=== PATIENT | male | born 1960 | race Caucasian/White ===

== ENCOUNTER 2024-06-15 17:06 | Emergency (ER) | payer BC, SELFPAY ==
--- NOTE | ~2024-06-15 | XR_ITS ---
The HISTORY: L shoulder pain COMPARISON: None TECHNIQUE: 2 views of the left shoulder were performed FINDINGS: No acute fracture. The glenohumeral joint space is maintained. Significant widening of the acromioclavicular joint, consistent with acromioclavicular joint separati on. The visualized portion of the adjacent left lung is clear. The humeral head is well seated within the glenoid fossa. IMPRESSION: No acute fracture or anterior dislocation. Acromioclavicular joint separation. Reviewed, dictated and finalized at location A.
[2024-06-15 17:07] VITALS: BP 156/91; PULSE 68; RESP 16; TEMP 36.4; O2SAT 96
--- OUTSIDE RECORDS SUMMARY | 2024-06-15 17:08 | XMS_ITS | Data Portability ---
Author Organization [facility] Alfredo CALERO Address [address] [place] [address] Assessment No assessment recorded. Plan of Treatment Reminders Order Date Submit Date Provider Last Modified By Organization Details Last Modified Time Details Appointments None recorded. Lab None recorded. Referral orthopedic surgeon referral 2015 016 [email or web address] Not available 6 12:07:42 orthopedic surgeon referral 2015 016 [email or web address] Not available 6 13:51:38 Procedures None recorded. Surgeries None recorded. Imaging MRI, knee, w/o contrast 2015 016 [facility], [address] [facility], [place], [address], 6 17:54:46 Medication Orders Vicoprofen 7.5 mg-200 mg tablet 2015 016 [email or web address], [address] [place], [address], 6 09:32:44 Vicoprofen 7.5 mg-200 mg tablet 2015 016 [email or web address], [address] [place], [address], 6 12:26:35 Patient TargetsNo targets recorded. Patient Instructions Encounter Date Encounter Id Patient Instructions Last Modified By Organization Details Last Modified Time 08/27/2015 [id number] medial collatera l ligament injury: care instructions Not available 08/27/2015 11:17:55 09/06/2015 [id number] medial collatera l ligament injury: care instructions Not available 09/06/2015 16:19:42 Reason for Referral Orthopedic Surgeon Referral for Rupture of medial collateral ligament of knee left knee mcl tear Referring Physician: Jhonatan Morrissey [facility], Encounter Date: 08/27/2015 Orthopedic Surgeon Referral for Rupture of medial collateral ligament of knee lft knee meniscal tear Referring Physician: Jhonatan Morrissey [facility], Encounter Date: 09/06/2015 Results Created Date Observation Date Name Description Value Unit Range Abnormal Flag Note LastModifiedBy Organization Detail LastModifiedTime 09/01/19 16 08/31/2015 MRI, knee, w/o contr ast No observ ation record ed. [address], [address], 09/06/2015 15:52:07 09/01/19 16 MRI, knee, w/o contr ast No observ ation record ed. [address], [address], 09/06/2015 15:52:07 Result Notes None recorded. Problems Name Problem SNOMED Code Status Onset Date Resolution Date Notes Provider Name and Address Organization Details Recorded Time Rupture of medial collateral ligament of knee 304400451 Active Jhonatan Morrissey PA-C Attn: [address] [place], [address] [place] [address] SIF 6 15:59:31 Problem Notes None recorded. Procedures Surgical History None recorded. Imaging Results Imaging Date Name Status LastModified by Organiz ation Details LastModified Time 08/31/2015 MRI, knee, w/o contrast completed [address], [address], 09/06/2015 15:52:07 09/01/2015 MRI, knee, w/o contrast completed [address], [address], 09/06/2015 15:52:07 Procedure Notes None recorded. Medical Equipment None Reported. Allergies No known drug allergies Medications Name Sig Start Date Stop Date Status Note LastModified by Organization Details LastModified Time hydrocodone 7.5 mg-ibuprofen 200 mg tablet Take 1 tablet every 8 hours by oral route for 30 days. 2015 active Not Available Not Available Not Avai lable hydrocodone 5 mg-acetaminop hen 325 mg tablet 08/26 completed Not Available Not Available Not Available hydrocodone 10 mg-acetaminop hen 325 mg tablet active Not Available Not Available Not Available oxycodone-aly taminophen 5 mg-325 mg tablet active Not Available Not Available Not Available omeprazole 20 mg capsule,delay ed release active Not Available Not Available N ot Available diclofenac sodium 75 mg tablet,delaye d release active Not Available Not Available No t Available fluticasone propionate 50 mcg/actuation nasal spray,suspens ion active Not Available Not Available Not Available Vitals Date Recorded Body height Systolic blood pressure Diastolic blood pressure Provider Name and Address Organization Details Last Updated DateTime 08/27/2015 166.37 cm 134 mm[Hg] 82 mm[Hg] Mica Leggett MA [facility] 08/27/2015 10:11:57 Date Recorded Body height Systolic blood pressure Diastolic blood pressure Provider Name and Address Organization Details Last Updated DateTime 09/06/2015 166.37 cm 118 mm[Hg] 64 mm[Hg] Mica Leggett MA [facility] 09/06/2015 15:38:12 Social History Question Answer Notes LastModified by [employer] ion Details LastModified Time Tobacco Smoking Status Former Smoker Mica Leggett MA null, [facility] 08/27/2015 10:06:39 How Much Tobacco Do You Smoke? 1 PPD Information not available 08/27/2015 Sex: Unknown Functional Status None recorded. Mental Status None recorded. Family History Relationship Description Onset Age of this Age Resolved Age Notes LastModified by Organization Details LastModified Time Mother Blood coagulation disorder Not available 08/11 15:23:35 Mother Hypertensive disorder Not available 08/11 15:23:35 Mother Hypercholest erolemia Not available 08/11 15:23:35 Mother Migraine Not availa ble 09/06/2015 15:23:35 Father Diabetes mellitus Not available 08/11 15:23:35 Father Hypertensive disorder Not available 08/11 15:23:35 Father Hypercholest erolemia Not available 08/11 15:23:35 Brother Alcohol abuse Not available 08/11 15:23:35 Medical History Condition Response High Cholesterol Y Past Encounters Encounter ID Performer Location Encounter Start Date Encounter Closed Date Diagnosis/Indication Diagnosis SNOMED-CT Code Diagnosis ICD10 Code Diagnosis Note [id number] MOUSTAPHA Padron [address] [place] [address] 08/27/2015 09:57:03 08/27/2015 11:01:04 Rupture of medial collateral ligament of knee 443873163 M23.632 [id number] MOUSTAPHA Padron [facility] [address] [place] [address] 09/06/2015 15:11:10 09/06/2015 16:26:19 Rupture of medial collateral ligament of knee 774309841 M23.632 Health Concerns Section Related Observation LastModified by Organization Detai ls LastModified Time None Recorded Concern Status LastModified by Organization Details LastModified Time None Recorded Advance Directives Directive None Recorded Payers Encounter Date Sequence Insurance Name Policy Number Policy Rodarte Covered Member ID Rodarte Member ID Guarantor Name 08/27/2015 1 [facility] (MEDICAID HM) Bari Weathers [id number] Bari Weathers 09/06/2015 1 [employer] [facility] (MEDICAID HMO) Bari Weathers [id number] Bari Weathers Notes Date Note Type Note Provider Name and Address Organization Details Recorded Time 08/27/2015 text/html dr. van does not take [employer]. fell off a ladder backwards. missed step twisted knee xrays dont show anything. happened 1 week ago. Jhonatan Morrissey PA-C Attn: [facility] [place], [address], [facility] 08/27/2015 10:36:54 09/06/2015 text/html needs to got to [facility] for ortho. see mri Jhonatan Morrissey PA-C Attn: [address] [place], [address], [facility] 09/06/2015 16:01:24
--- OUTSIDE RECORDS SUMMARY | 2024-06-15 17:09 | XMS_ITS | Data Portability ---
Author Organization [place] - [facility] [employer], Main Office Address [address] [place] [address] Assessment Encounter Date Assessment Date Assessment LastModified by Organization Details LastModified Time 08/09/2023 08/09/2023 fatty mass posterior shoulder, enlarging symptomatic. Options discussed with patient. Will schedule for excision under sedation. Risks and benefits were discussed. Risks include bleeding, infection and numbness Not available 08/09/2023 13:04:18 09/04/2023 09/04/2023 status post excision benign fatty mass right posterior shoulder. Doing well overall. Follow up p.r.n. Not available 09/04/2023 13:05:02 09/12/2023 09/12/2023 63 year old male presents for follow up of his left knee arthritis. He had Euflexxa last December, and that worked well until recently. Still taking diclofenac. Currently rates 5/10 pain. Tenderness over the lateral joint line and with patellar grind. Range of motion 0-130 with crepitus. 1+ effusion. XR show knee osteoarthritis Will plan to repeat Euflexxa injections. Will submit for authorization. Follow up after approval for injections. [email or web address] Not available 09/14/2023 22:48:42 12/03/2023 12/03/2023 04/22/2022: PSA 1.70 CBC, Lipid ordered 04/23/23,10/29/22,03/24/2023: Chol 219, TG 181, LDL 131 Gluc 142 TSH 0.37L, FT4 1.3N 07/24/2023: WBC 10.9 PSA 2.3 [email or web address] Not available 12/03/2023 18:09:00 04/07/2024 04/07/2024 04/22/2022: PSA 1.70 CBC, Lipid ordered 04/23/23,10/29/22,03/24/2023: Chol 219, TG 181, LDL 131 Gluc 142 TSH 0.37L, FT4 1.3N 07/24/2023: WBC 10.9 PSA 2.3 04/02/2024: A1C 5.9 [email or web address] Not available 04/07/2024 18:27:29 Plan of Treatment Reminders Order Date Submit Date Provider Last Modified By Organization Details Last Modified Time Details Appointments Any 15 2024 04:30P M Marika newsome MD Not available Not available Not available Lab HbA1c (hemogl obin A1c), blood 2024 025 [employer] [facility], [address], [place], [address], 04/07/2024 18:29:43 microal bumin, urine 2024 025 [employer] [facility], [address], [place], [address], 04/07/2024 18:29:46 CMP, serum or plasma 2024 025 [employer] [facility], [address], [place], [address], 04/07/2024 18:29:45 CBC w/ auto diff 2024 025 [email or web address] [facility], [address], [place], [address], 04/07/2024 18:29:44 lipid panel, serum 2024 025 [employer] [facility], [address], [place], [address], 04/07/2024 18:29:43 T4, free, serum 2024 025 [facility], [address], [place], [address], 04/07/2024 18:29:45 TSH, serum or plasma 2024 025 [facility], [address], [place], [address], 04/07/2024 18:29:46 HbA1c (hemogl obin A1c), blood 2023 024 [email or web address] [facility], [address], [place], [address], 06/04/2024 08:13:16 microal bumin, urine 2023 024 [email or web address] [facility], [address], [place], [address], 06/04/2024 08:13:16 CMP, serum or plasma 2023 024 [email or web address] [facility], [address], [place], [address], 06/04/2024 08:13:16 CBC w/ auto diff 2023 024 [email or web address] [facility], [address], [place], [address], 06/04/2024 08:13:16 lipid panel, serum 2023 024 [facility], [address], [place], [address], 04/07/2024 16:52:27 T4, free, serum 2023 024 [facility], [address], [place], [address], 06/04/2024 08:13:16 TSH, serum or plasma 2023 024 [email or web address] [facility], [address], [place], [address], 06/04/2024 08:13:17 Referral orthope dic surgeon referra l - Please call patient to schedul e an appoint ment. Thank you. 2024 025 caitlin Ingram MD, [address] [facility], [place], [address], 05/16/2024 09:22:54 podiatr ist referra l - Please call patient to schedul e an appoint ment. Thank you. 2024 025 caitlin Gr DPM, [address] [facility], [facility] [address], [place], [address], 05/16/2024 09:23:21 pain managem ent referra l - Please call patient to schedul e an appoint ment. Thank you. 2024 025 [email or web address] [facility], [address], [address], [place], [address], 05/16/2024 09:23:09 orthope dic surgeon referra l 2023 024 [email or web address] 2 Geoffrey Ingram MD, [address] [facility], [place], [address], 06/09/2024 09:04:04 pain managem ent referra l 2023 024 [facility], [address], [address], [place], [address], 12/31/2023 17:07:53 Procedures None recorde d. Surgeries None recorde d. Imaging XR, lumbosa cral spine, 2 or 3 view 2023 024 [facility] Not available 12/27/2023 15:24:04 XR, knee 2023 024 [facility] [place], [address], [place], [address], 09/24/2023 16:43:21 Medication Orders diclofe nac sodium 75 mg tablet, delayed release 2023 024 [id number], [address], [place], [place], [phone], 12/03/2023 18:11:20 Patient TargetsNo targets recorded. Patient Instructions Encounter Date Encounter Id Patient Instructions Last Modified By Organization Details Last Modified Time 09/12/2023 [id number] viscosupplementa tion treatment* [email or web address] Not available 09/17/2023 14:39:52 04/07/2024 [id number] diabetic eye exam* [email or web address] Not avail able 04/07/2024 18:39:58 Reason for Referral Orthopedic Surgeon Referral for Pain of left knee joint Referring Physician: Marika [facility], Encounter Date: 12/03/2023 Pain Management Referral for Low back pain Referring Physician: Marika [facility], Encounter Date: 12/03/2023 Orthopedic Surgeon Referral for Pain of left knee joint Please call patient to schedule an appointment. Thank you. Referring Physician: Marika [facility], Encounter Date: 04/07/2024 Pain Management Referral for Low back pain Please call patient to schedule an appointment. Thank you. Referring Physician: Marika Fraser [facility], Encounter Date: 04/07/2024 [employer] Referral for Hype rglycemia Please call patient to schedule an appointment. Thank you. Referring Physician: Marika [facility], Encounter Date: 04/07/2024 Results Created Date Observation Date Name Description Value Unit Range Abnormal Flag Note LastModifiedBy Organization Detail LastModifiedTime 09/12/19 24 XR, knee No observ ation record ed. [email or web address] [facility] [place] [address], [place], [address], 09/12/2023 14:49:48 12/27/19 24 XR, lumbo sacra l spine , 2 or 3 view [facility] [address] [place] [address] [phone] Patien t Name: MONICA SEGAL Access ion #: [id number] Sex: M : 1959 2 Dictat ed By: Odalys Turner Attend ing Physic trevon: JOSÉ MIGUEL MÉNDEZ Orderparis gracia Physic trevon: JOSÉ MIGUEL MÉNDEZ Exam Date: 2023 14:20 PM Exam Name: XR L SPINE 2-3V Admitt ing Diagno sis(es ): INDICA TION:L BP TECHNI QUE: 4 views of the lumbar spine were obtain ed. COMPAR JAYME: None FINDIN GS: There are no acute fractu res or sublux ations . Multil evel advanc ed degene rative change s of the spine with multil evel degene rative disc space narrow ing and neural forami nal stenos is most promin ent at L3-L4, L4-L5 and L5-S1. Vascul ar athero sclero tic calcif icatio ns are presen t. Modera te volume coloni c stool. IMPRES DUDLEY: No acute fractu re or sublux ation. Electr onical ly Signed by: Odalys Turner at 2023 14:21: 51 PM Page 1 INTERFACE [facility] ([facility]) [address] [place], [address], 12/27/2023 15:24:04 12/27/19 24 12/27/2023 imagi ng/di agnos tic resul t No observ ation record ed. [facility] [address] [place], [address], 12/27/2023 15:41:10 Result Notes None recorded. Problems Name Problem SNOMED Code Status Onset Date Resolution Date Notes Provider Name and Address Organization Details Recorded Time Pain of right shoulder joint [id number] [id number] Completed 202111/03/2021 Not Available [facility] 3 22:26:48 Adult health examinati on Active 2020 Not Available [facility] 3 22:26:48 Pain in right hand 89595869883 9109 Active 2021 Not Available [facility] 3 22:26:48 Arthritis 6638620 Active 2020 Not Available [facility] 3 22:26:48 Pain of left knee joint 38491824314 4107 Active 2022 Not Available [facility] 3 22:26:48 Hyperlipi demia 41420955 Active 2020 Not Available [facility] 3 22:26:48 Essential hypertens ion 58563346 Active 2020 Not Available [facility] 3 22:26:48 Erectile dysfuncti on 126318433 Active 2021 Not Available [facility] 3 22:26:48 Osteoarth ritis 617453764 Active 2022 Marika marin MD [address], [address], [place], [address] , [email or web address] 3 09:29:03 Low back pain 069196721 Active 2022 Marika marin MD [address], [address], [place], [address] , [employer] 3 17:44:48 Hyperglyc emia 80672480 Active 2023 Marika marin MD [address], [address], [place], [address] , [employer] 4 17:31:36 Lipoma of shoulder 297654126 Active 2023 Marika marin MD [address], [address], [place], [address] , [employer] 4 10:16:13 Lipoma of skin 052054489 Active 2023 Aldo larson MD [address], [address], [place], [address] , [facility] [employer] 4 11:08:03 Osteoarth ritis of left knee joint 92564121106 9109 Active 2023 TREE Sidhu, [employer] 4 14:34:39 Problem Notes None recorded. Procedures Surgical History Date Name Laterality Status Provider Name and Address Organization Details Recorded Time 4 excision completed Joanne Matson MA [place] [employer] [facility] [employer] 09/05/2023 10:18:14 3 Euflexxa Injection completed Calista Dan NP [address], [address], [place], [address], [email or web address] 12/18/2022 09:53:57 3 Ortho - Cortisone Injection completed Geoffrey Ingram MD [address], [place], [address], [employer] [facility] [employer] 06/19/2022 10:28:41 1 Hernia Surgery completed Not Available [facility] 05/10 22:26:19 Orthopedic Surgery completed Not Available [facility] 05/10/2022 22:26:19 Imaging Results Imaging Date Name Status LastModified by Organiz ation Details LastModified Time 09/12/2023 XR, knee completed [facility] [place] [address], [place], [address], 09/12/2023 14:49:48 12/27/2023 XR, lumbosacral spine, 2 or 3 view active INTERFACE [facility] [address] [place], [address], 12/27/2023 15:24:04 12/27/2023 imaging/diagnos tic result active [facility] [address] [place], [address], 12/27/2023 15:41:10 Procedure Notes None recorded. Medical Equipment None Reported. Allergies No known drug allergies Medications Name Sig Start Date Stop Date Status Note LastModified by Organization Details LastModified Time atorvastati n 20 mg tablet TAKE 1 TABLET BY MOUTH EVERY DAY 2024 active Not Available Not Available Not Avai lable sildenafil 50 mg tablet Take 1 tablet twice a week by oral route as needed for 90 days. 10/04 completed Not Available Not Available Not Available ciprofloxac in 500 mg tablet TAKE 1 TABLET BY MOUTH EVERY 12 HOURS 06/16 completed Not Available Not Available Not Available peg-electro lyte solution 420 gram oral solution 07/05 completed Not Available Not Available Not Available tramadol 50 mg tablet TAKE 1 TABLET BY MOUTH EVERY 6 HOURS NEEDED FOR PAIN active Not Available Not Available No t Available oxycodone-a cetaminophe n 5 mg-325 mg tablet TAKE 1 TABLET BY MOUTH EVERY 4-6 HOURS NEEDED 12/02 completed Not Available Not Available Not Available Kenalog 10 mg/mL suspension for injection Take 10 mg by injection route. 07/05 completed [facility]: [phone] Not Available Not Available Not Available diclofenac sodium 75 mg tablet,theresa yed release TAKE 1 TABLET BY MOUTH EVERYDAY WITH FOOD NEEDED, TAKE VERY SPARINGLY 2024 active Not Available Not Available Not Avai lable bisacodyl 5 mg tablet,theresa yed release 11/08 completed Not Available Not Available Not Available methylpredn isolone 4 mg tablets in a dose pack FOLLOW PACKAGE DIRECTION S 10/13 completed Not Available Not Available Not Available olmesartan 20 mg tablet TAKE 1 TABLET BY MOUTH EVERY DAY active Not Available Not Available No t Available olmesartan 40 mg tablet TAKE 1 TABLET BY MOUTH EVERY DAY 2024 active Not Available Not Available Not Avai lable cyclobenzap rine 5 mg tablet Take 1 tablet 3 times a day by oral route. active Not Available Not Available No t Available tadalafil 20 mg tablet TAKE 1 TABLET BY MOUTH 30 MINUTES PRIOR TO SEXUAL ACTIVITY NEEDED. NO MORE THAN TWICE PER WEEK 2024 active Not Available Not Available Not Avai lable Euflexxa 10 mg/mL (mw 2.4-3.6 million) intra-artic ular syringe Inject 2 mL by intra-art icular route as directed for 21 days, for left knee osteoarth ritis. 12/02 completed Not Available Not Available Not Available ropivacaine (PF) 5 mg/mL (0.5 %) injection solution Take 20 mg by injection route. 07/05 completed [facility] [phone] Not Available Not Available Not Available Vitals Date Recorded Body height Body mass index (BMI) Body weight Body temperature Heart rate Oxygen saturation Oxygen saturation in Arterial blood by Pulse oximetry Systolic blood pressure Diastolic blood pressure Provider Name and Address Organization Details Last Updated DateTime 4 177.8 cm 26.5 kg/m2 80867.5 9 g 98.6 [degF] 82 /min 98 % 98 % 140 mm[Hg] 72 mm[Hg] Joanne Matson MA [email or web address] 4 12:42:46 Date Recorded Body height Body mass index (BMI) Body weight Body temperature Heart rate Respiratory rate Oxygen saturation Oxygen saturation in Arterial blood by Pulse oximetry Systolic blood pressure Diastolic blood pressure Provider Name and Address Organization Details Last Updated DateTime 4 177.8 cm 26.5 kg/m2 81011.5 9 g 98.6 [degF] 82 /min 16 /min 98 % 98 % 140 mm[Hg] 72 mm[Hg] Sarahi Fleming [email or web address] 4 12:51:04 Date Recorded Body height Body mass index (BMI) Body weight Provider Name and Address Organization Details Last Updated DateTime 09/12/2023 177.8 cm 25.1 kg/m2 51477.66 g LISE Negron [email or web address] 09/12/2023 14:49:27 Date Recorded Body height Body mass index (BMI) Body weight Body temperature Heart rate Systolic blood pressure Diastolic blood pressure Provider Name and Address Organization Details Last Updated DateTime 4 177.8 cm 24.7 kg/m2 53355.8 9 g 97.7 [degF] 84 /min 130 mm[Hg] 68 mm[Hg] LISE Carballo [facility] [employer] [facility] 4 17:30:53 Date Recorded Body height Body mass index (BMI) Body weight Body temperature Heart rate Systolic blood pressure Diastolic blood pressure Provider Name and Address Organization Details Last Updated DateTime 5 177.8 cm 26.1 kg/m2 40932.8 1 g 98.1 [degF] 84 /min 130 mm[Hg] 82 mm[Hg] LISE Carballo [facility] [employer] [facility] 5 18:14:10 Social History Question Answer Notes LastModified by Organization Details LastModified Time Tobacco Smoking Status Current Every Day Smoker Quit at age 45 yrs Current use of cigars Not Available [facility] 05/10/2022 22:26:15 Do You Have An Advance Directive? No MIGRATION.0301 [id number] Information not available 05/10/2022 What Is Your Level Of Alcohol Consumption? Occasional MIGRATION.030 863199 Information not available 05/10/2022 Do You Wear A Helmet When Biking? Yes MIGRATION.030 860683 Information not available 05/10/2022 What Is Your Level Of Caffeine Consumption? Occasional MIGRATION.0301 863917 Information not available 05/10/2022 How Much Tobacco Do You Chew? None MIGRATION.030 452678 Information not available 05/10/2022 In The 14 Days Before Symptom Onset, Have You Had Close Contact With A Laboratory-confi rmed COVID-19 While That Case Was Ill? No MIGRATION.030 903452 Information not available 05/10/2022 In The 14 Days Before Symptom Onset, Have You Had Close Contact With A Person Who Is Under Investigation For COVID-19 While That Person Was Ill? No MIGRATION.0301 029023 Information not available 05/10/2022 Are You Currently Employed? Yes Information not available 11/08/2022 What Type Of Diet Are You Following? REGULAR MIGRATION.030 059953 Information not available 05/10/2022 Which Illicit Or Recreational Drugs Have You Used? Marijuana Occationally MIGRATION.0301 813766 Information not available 05/10/2022 Do You Or Have You Ever Used E-cigarettes Or Vape? Never Used Electronic Cigarettes MIGRATION.0301 [id number] Information not available 05/10/2022 What Is The Highest Grade Or Level Of School You Have Completed Or The Highest Degree You Have Received? SC96731-6 MIGRATION.0301 739116 Information not available 05/10/2022 What Is Your Occupation? [employer] MIGRATION.0301 [id number] Information not available 05/10/2022 Have There Been Any Changes To Your Family Or Social Situation? No MIGRATION.0301 713826 Information not available 05/10/2022 Do You Use Insect Repellent Routinely? No MIGRATION.0301 718217 Information not available 05/10/2022 Where Do You Live? SingleLevelHouse MIGRATION.0301 203087 Information not available 05/10/2022 What Was The Date Of Your Most Recent Tobacco Screening? 04/07/2024 Information not available 04/07/2024 Have You Ever Been Counseled For Unhealthy Alcohol Use? No MIGRATION.0301 848770 Information not available 05/10/2022 Do You Have Any Pets? Yes MIGRATION.0301 [id number] Information not available 05/10/2022 What Is Your Relationship Status? MIGRATION.0301 057972 Information not available 05/10/2022 Do You Use Your Seat Belt Or Car Seat Routinely? Yes MIGRATION.0301 649650 Information not available 05/10/2022 Do You Have Smoke And Carbon Monoxide Detectors In Your Home? Yes MIGRATION.0301 465437 Information not available 05/10/2022 At What Age Did You Start Smoking Tobacco? 14 MIGRATION.0301 440708 Information not available 05/10/2022 Are You Passively Exposed To Smoke? Yes MIGRATION.0301 146427 Information not available 05/10/2022 Do You Or Have You Ever Used Smokeless Tobacco? Never Used Smokeless Tobacco MIGRATION.0301 193599 Information not available 05/10/2022 Are There Any Smokers In Your House? Yes MIGRATION.0301 871575 Information not available 05/10/2022 Do You Feel Stressed (tense, Restless, Nervous, Or Anxious, Or Unable To Sleep At Night)? TH4297-7 MIGRATION.300 721828 Information not available 05/10/2022 Do You Use Any Illicit Or Recreational Drugs? No MIGRATION.030499484 Information not available 05/10/2022 Do You Use Sunscreen Routinely? Yes MIGRATION.[id number] Information not available 05/10/2022 Have You Recently Traveled Abroad? No MIGRATION.030316590 Information not available 05/10/2022 Do You Have Any Dietary Restrictions? No MIGRATION.03022990417 Information not available 05/10/2022 Do You Or Have You Ever Used Any Other Forms Of Tobacco Or Nicotine? No Information not available 11/08/2022 Sex: Male Functional Status Question Answer Note LastModified by Organizat ion Details LastModified Time What is your exercise level? None MIGRATION.[id number] Information not available 05/10/2022 Mental Status None recorded. Family History Relationship Description Onset Age of this Age Resolved Age Notes LastModified by Organization Details LastModified Time Father Essential hypertension MIGRATION.577 [id number] Not available 05/10/2022 22:26:20 Medical History Condition Response NERVE DISEASE N BLINDNESS N RHEUMATIC FEVER N KIDNEY STONES N BLADDER PROBLEMS N MRSA N OTHER # 1 N POLIO N LUNG DISEASE/DISORDER N HISTORY OF DRUG ABUSE N RADIATION / CHEMOTHERAPY N COPD N Other # 2 N BLOOD DISEASES N EAR OR HEARING PROBLEMS N MUMPS N SHINGLES N DEPRESSION (INCLUDING POST ) N BOWEL PROBLEMS N FAILED BACK SYNDROME N STROKE/TIA N ULCERS N BENIGN PROSTATIC HYPERPLASIA N MEASLES N HYPOTENSION N MYOCARDIAL INFARCTION N OBESITY N GERD/NAUSEA N ANEURYSM N URINARY/BLADDER/KIDNEY PROBLEMS N CORONARY ARTERY DISEASE (CAD) N Do you have Advance directive? N ADDICTION CONCERNS N Impotence N ENDOMETRIOSIS N USE OF BLOOD THINNERS N SKIN PROBLEMS N GASTROINTESTINAL DISORDER N PERIPHERAL VASCULAR DISEASE N MUSCLE,JOINT OR BONE PROBLEMS N GASTROINTESTINAL BLEEDING N BLOOD CLOTS N ASTHMA N CATARACTS N Abdominal Pain N ERECTILE DYSFUNCTION Y ARTERIAL INSUFFICIENCY N VARICOSITIES N GI PROBLEMS N Low Testosterone N INFERTILITY N AIDS/HIV N CHEMOTHERAPY / RADIATION N LIVER DISEASE N MALE HYPOGONADISM N HYPERTENSION Y Deficiency N TOURETTE'S N ANXIETY DISORDER N BLOOD TRANSFUSION N ANEMIA/BLOOD DISORDER N CHRONIC EAR INFECTIONS N TUBERCULOSIS N GLAUCOMA N FOOT PROBLEM N DIVERTICULITIS N SLEEP APNEA N CHICKENPOX N BACK INJECTIONS N ALLERGIES/HAYFEVER N INFECTIOUS DISEASE N PROSTATE N HEART ARRHYTHMIA N INSOMNIA N ESRD N HIGH CHOLESTEROL / HYPERLIPIDEMIA Y HYPERTHYROIDISM N EYE PROBLEMS N PVD N EDEMA N CHRONIC PAIN SYNDROME N HYPOTHYROIDISM N CONSTIPATION N CAROTID BLOCKAGE N BACK / NECK PROBLEMS N ATHEROSCLEROSIS N BREAST PROBLEMS N DIALYSIS N POLYCYSTIC OVARIES N ECZEMA N OSTEOPOROSIS N ARTHRITIS Y APPENDICITIS N DIABETES, TYPE N BAD TEETH N VON WILLIBRAND'S DISEASE N ENT N HEARTBURN / REFLUX N GI N AUTISM SPECTRUM DISORDER (ASD) N POST LAMINECTOMY SYNDROME N HEPATITIS / LIVER DISEASE N GOUT N SLEEP DISORDER N ALZHEIMER'S DISEASE N Brain Problems N HERPES N DEMENTIA N SEIZURES/EPILEPSY N HEADACHES/MIGRAINES N VASCULAR DISEASE N PACEMAKER N DIZZINESS N KIDNEY DISEASE N HEART DISEASE/HEART PROBLEMS N MULTIPLE SCLEROSIS N NEUROPSYCHOLOGICAL N CARDIAC ARRHYTHMIA N CANCER: SPECIFY N Gall Stones N ATRIAL FIBRILLATION N PULMONARY EMBOLISM N AUTOIMMUNE DISEASE N Immunizations Vaccine Type Date Status Note Provider Nam e and Address Organization Details Recorded Time Influenza, split virus, quadrivalent, PF 03/15/2022 completed Not Available [facility] 22:27:19 Past Encounters Encounter ID Performer Location Encounter Start Date Encounter Closed Date Diagnosis/Indication Diagnosis SNOMED-CT Code Diagnosis ICD10 Code Diagnosis Note [id number] [facility] [address] [place] [address] 06/30/2020 00:00:00 06/30/2020 09:50:37 [id number] [facility] [address] [place] [address] 07/29/2020 00:00:00 07/29/2020 17:20:09 [id number] [facility] [address] [place] [address] 08/26/2020 00:00:00 08/26/2020 16:54:22 [id number] [facility] [address] [address] 11/30/2020 00:00:00 11/30/2020 16:43:45 [id number] [facility] [address] [place] [address] 01/24/2021 00:00:00 01/24/2021 15:34:55 [id number] [facility] [address] [address] 06/16/2021 00:00:00 06/16/2021 11:56:09 [id number] [facility] [address] [address] 07/04/2021 00:00:00 07/04/2021 16:08:47 [id number] [facility] [address] [address] 11/08/2021 00:00:00 11/08/2021 17:02:02 [id number] [facility] [place] [facility] , [place] [address] 03/15/2022 00:00:00 03/15/2022 17:32:39 [id number] [facility] [address] [address] 03/27/2022 00:00:00 03/27/2022 11:51:20 [id number] [facility] [address] [address] 04/24/2022 00:00:00 05/08/2022 11:27:08 [id number] Geoffrey Ingram MD [facility] [address] [address] 06/19/2022 09:53:26 06/19/2022 10:59:49 Pain of left knee joint 5786360295 65755 M25.562 Arthritis of left knee 2095563339 [id number] M13.862 [id number] Marika marin MD [facility] [place] [address] [place] [address] 07/05/2022 17:23:27 07/05/2022 18:21:07 Screening - NAD [id number] Z13.9 C-scope: 06/23/2022 : Dr Hackett next in 10 years Get yearly flu shotGet Tdap if not doneGet COVID 19 vaccineHe has declined any of the vaccines 03/15/2022 RTC in 3 months, do labs, ER if worse, he did verbalize his understand ing of the above Essential hypertension [id number] I10 Repeat BP 142/86 On olmesartan 40mg dailyGet labs Erectile dysfunction 860 692419 F52.21 On tadalafil 20mg dailyDoes well, take as needed Osteoarthritis 420070763 M19.90 L knee painTake diclofenac ONLY as needed, all side effects explained Did see Dr Ingram 06/19/2022 Pain of le ft knee joint [id number] 35445 M25.562 Old trauma 8 years ago when he fell on his shed, now pain with bending the kneeGet a referral to Dr Barajas Screening for malignant neoplasm of prostate 792607105 Z12.5 Hyperlipidemia 94234431 E78.5 Get on atorvastat in 20mg dailyGet labs [id number] Marika marin MD [facility] [place] [address] [facility] [address] [facility] [place] [address] 11/08/2022 17:19:08 11/08/2022 17:46:01 Screening - NAD [id number] Z13.9 C-scope: 06/23/2022 : Dr Hackett next in 10 years Get yearly flu shotGet Tdap if not doneGet COVID 19 vaccineHe has declined any of the vaccines 03/15/2022 RTC in 3 months, do labs, ER if worse, he did verbalize his understand ing of the above Essential hypertension 69971751 I10 Repeat BP 142/86 On olmesartan 40mg dailyGet labs Erectile dysfunction 860 327811 F52.21 On tadalafil 20mg dailyDoes well, take as needed Osteoarthritis 869871995 M19.90 L knee painTake diclofenac ONLY as needed, all side effects explained Did see Dr Ingram 06/19/2022 Pain of le ft knee joint 2880777220 62297 M25.562 Old trauma 8 years ago when he fell on his shed, now pain with bending the kneeGet a referral to Dr Barajas Hyperlipidemia 89955566 E78.5 Get on atorvastat in 20mg dailyGet labs Low back pain 208729811 M54.50 On diclofenac Advised to stop and get a referral to pain management [id number] NAGI Painagua [facility] [address] [place] [address] 12/04/2022 09:38:10 12/04/2022 10:14:39 Pain of left knee joint 1290098983 94220 M25.184 [id number] NAGI Paniagua [facility] Kira Zamudio [address] [place] [address] 12/12/2022 09:20:43 12/12/2022 09:40:54 Pain of left knee joint 0463588254 84654 M25.449 [id number] Calista Dan NP [facility] [address] [place] [address] 12/18/2022 09:35:42 12/18/2022 10:37:59 Pain of left knee joint 5037944846 87062 M25.881 [id number] [facility] [place] [address] [place] [address] 04/23/2023 17:09:16 04/23/2023 17:44:08 Screening - NAD [id number] Z13.9 C-scope: 06/23/2022 : Dr Hackett next in 10 years Get yearly flu shotGet Tdap if not doneGet COVID 19 vaccineGet RSV vaccineCan do shingrix vaccineHe has declined any of the vaccines 03/15/2022 RTC in 3 months, do labs, ER if worse, he did verbalize his understand ing of the above Essential hypertension 15433237 I10 Repeat BP 142/86 On olmesartan 40mg dailyGet labs Erectile dysfunction 860 246559 F52.21 On tadalafil 20mg daily, not helped,jose antonio l change to sildenafil Does well, take as needed Osteoarthritis 567517392 M19.90 L knee painTake diclofenac ONLY as needed, all side effects explained Did see Dr Ingram 06/19/2022 Pain of le ft knee joint 8228113874 79345 M25.562 Old trauma 8 years ago when he fell on his shed, now pain with bending the knee Calista Mckeon [employer] ortho, s/p euflexxa (hyaluroni c acid) injection Hyperlipidemia 83799758 E78.5 Not on atorvastat in 20mg daily, will restart 04/23/2023 Get labs Low back pain 075532202 M54.50 On diclofenac , take only as neededAdvi sed to stop and get a referral to pain management Hyperglycemia 88724999 R 73.9 Wants to diet and exercise, has been eating bagels and cream cheese and Dove chocolates Get labs Screening for malignant neoplasm of prostate 882156485 Z12.5 [id number] Marika marin MD [facility] [place] [address] [facility] [address] [place] [address] 07/30/2023 09:24:07 07/30/2023 10:18:49 Screening - NAD 861837155 Z13.9 C-scope: 06/23/2022 : Dr Hackett next in 10 years Get yearly flu shotGet Tdap if not doneGet COVID 19 vaccineGet RSV vaccineCan do shingrix vaccineHe has declined any of the vaccines 03/15/2022 RTC in 3 months, do labs, ER if worse, he did verbalize his understand ing of the above Essential hypertension 68429060 I10 Repeat BP 142/86 On olmesartan 40mg dailyGet labs Erectile dysfunction 860 852183 F52.21 On tadalafil 20mg daily, not helped,jose antonio l change to sildenafil refilled 07/30/2023 Does well, take as needed Osteoarthritis 111042878 M19.90 L knee painTake diclofenac ONLY as needed, all side effects explained Did see Dr Ingram 06/19/2022 Calista Mckeon NP 12/18/2022 Pain of le ft knee joint 9192266248 15364 M25.562 Old trauma 8 years ago when he fell on his shed, now pain with bending the knee Calista Mckeon [employer] ortho, s/p euflexxa (hyaluroni c acid) injection Hyperlipidemia 18522575 E78.5 On atorvastat in 20mg dailyGet labs Low back pain 593764284 M54.50 On diclofenac , take only as neededAdvi sed to stop and get a referral to pain management Hyperglycemia 07197034 R 73.9 Wants to diet and exercise, has been eating bagels and cream cheese and Dove chocolates Get labs Lipoma of shoulder 27768 4000 D17.20 [id number] Aldo larson MD [facility] General Surgery [address] [address] 08/09/2023 12:34:28 09/27/2023 11:21:45 Lipoma of skin 440881977 D17.30 Shoulder Right [id number] Aldo larson MD [facility] General Surgery [address] [address] 09/04/2023 12:49:21 09/27/2023 14:45:26 [id number] Geoffrey Ingram MD [facility] Ortho [place] [address] [place] [address] 09/12/2023 14:45:57 09/12/2023 15:47:59 Pain of left knee joint 2649661102 74695 M25.845 [id number] [facility] Internal Med [place] [address] [facility] [place] [address] 12/03/2023 17:21:52 12/03/2023 18:12:42 Screening - NAD 741999717 Z13.9 C-scope: 06/23/2022 : Dr Hackett next in 10 years Get yearly flu shotGet Tdap if not doneGet COVID 19 vaccineGet RSV vaccineCan do shingrix vaccineHe has declined any of the vaccines 03/15/2022 RTC in 3 months, do labs, ER if worse, he did verbalize his understand ing of the above Essential hypertension 54815421 I10 Repeat BP 142/86 On olmesartan 40mg dailyGet labs Erectile dysfunction 860 224964 F52.21 On tadalafil 20mg daily as neededDoes well, take as needed Osteoarthritis 250280284 M19.90 L knee painTake diclofenac ONLY as needed, all side effects explained Did see Dr Ingram 06/19/2022 Calista Mckeon NP 12/18/2022 Pain of le ft knee joint 7857053705 50275 M25.562 Old trauma 8 years ago when he fell on his shed, now pain with bending the knee Calista Mckeon [employer]ILD[employer] ortho, s/p euflexxa (hyaluroni c acid) injection Hyperlipidemia 93924459 E78.5 On atorvastat in 20mg dailyGet labs Low back pain 347308841 M54.50 On diclofenac , take only as needed renewed 12/03/2023 , advised on the side effects and that he should not be dependent on NSAIDs, 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 'messed up' the backGet a referral to pain management and he has agreed to see pain management , he understand s that further refills for the NSAIDs have to be addressed by pain management he has verbalized his understand ing of the above Hyperglycemia 48479944 R 73.9 Wants to diet and exercise, has been eating bagels and cream cheese and Dove chocolates Get labs [id number] Marika marin MD [facility] [address] [facility] [address] [address] [place] [address] 04/07/2024 17:24:20 04/07/2024 18:40:09 Screening - NAD 190735750 Z13.9 C-scope: 06/23/2022 : Dr Hackett next in 10 years Get yearly flu shotGet Tdap if not doneGet COVID 19 vaccineGet RSV vaccineCan do shingrix vaccineHe has declined any of the vaccines 03/15/2022 RTC in 3 months, do labs, ER if worse, he did verbalize his understand ing of the above Essential hypertension 93407864 I10 Repeat BP 142/86 On olmesartan 40mg dailyGet labs Erectile dysfunction 860 272540 F52.21 On tadalafil 20mg daily as neededDoes well, take as needed Osteoarthritis 071346605 M19.90 L knee painTake diclofenac ONLY as needed, all side effects explained Did see Dr Ingram 06/19/2022 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/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 Pain of le ft knee joint 7694381234 89737 M25.562 Old trauma 8 years ago when he fell on his shed, now pain with bending the knee Calista Mckeon [employer]ILD[employer] ortho, s/p euflexxa (hyaluroni c acid) injection Hyperlipidemia 26061132 E78.5 On atorvastat in 20mg dailyGet labs Low back pain 959808334 M54.50 On diclofenac , take only as needed renewed 12/03/2023 , advised on the side effects and that he should not be dependent on NSAIDs, 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 'messed up' the 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 a referral to pain management and he has agreed to see pain management , he understand s that further refills for the NSAIDs have to be addressed by pain management he has verbalized his understand ing of the above OV 04/07/2024 : See [facility], referred again Hyperglycemia 59318908 R 73.9 Wants to diet and exercise, has been eating bagels and cream cheese and Dove chocolates Get labs Health Concerns Section Related Observation LastModified by Organization Detai ls LastModified Time None Recorded Concern Status LastModified by Organization Details LastModified Time None Recorded Advance Directives Directive N: Payers Encounter Date Sequence Insurance Name Policy Number Policy Rodarte Covered Member ID Rodarte Member ID Guarantor Name 08/09/2023 1 [employer] [id number] Monica D Weathers [id number] Monica D Weathers 09/04/2023 1 [employer] [id number] Monica D Weathers [id number] Monica D Weathers 09/12/2023 1 [employer] [id number] Monica D Weathers [id number] Monica D Weathers 12/03/2023 1 [employer] [id number] Monica D Weathers [id number] Monica D Weathers 04/07/[address] [facility] [id number] Monica D Weathers [id number] Monica D Weathers Notes Date Note Type Note Provider Name and Address Organization Details Recorded Time 08/09/2023 text/html patient complain s of fatty mass on his right posterior shoulder. It has been there for quite some time. Be coming a little larger. Would like to have them removed. Denies redness drainage or any other symptoms Aldo Benavides MD [address] [place] [address], [facility] [address], [place], [address], [facility] [employer] [facility] 08/13/2023 11:09:09 09/04/2023 text/html No complaints Aldo Benavides MD [address], [facility] [address], [place], [address], [facility] [employer] [facility] 09/04/2023 13:05:05 12/03/2023 text/html OV 03/15/2021:He re to establish carePast Hx:HTNEDOA with L knee painReviewed social family and surgical historyC/o L knee pain, old injury when he fell, now unable to bend his knee, no new labs OV 07/05/2022:Here for his f/u apt, he is doing well, labs were done 2 weeks but not reported OV 11/08/2022: Here for his routine apt, he feels well at this time, no new labs, still has L knee davalos and now has LBP, no N/T or weakness in the LE, no loss of bowel or bladder control OV 04/23/2023: Here for his f/u apt, he feels well today, no new labs OV 07/30/2023: Here for his routine apt, he is doing well today, he did do the labs, states that he is now eating more fruits and vegetables and has even started an exercise program and feels very well OV : Here for his f/u apt, he is doing well today, he is very eager to get his prescription for the diclofenac, he still LBP, no N/T or weakness or loss of bowel or bladder control, he has no new labs Marika Fraser MD [address], [facility] [address], [place], [address], [facility] [employer] [facility] 12/03/2023 18:35:56 04/07/2024 text/html OV 03/15/2021:He re to establish carePast Hx:HTNEDOA with L knee painReviewed social family and surgical historyC/o L knee pain, old injury when he fell, now unable to bend his knee, no new labs OV 07/05/2022:Here for his f/u apt, he is doing well, labs were done 2 weeks but not reported OV 11/08/2022: Here for his routine apt, he feels well at this time, no new labs, still has L knee davalos and now has LBP, no N/T or weakness in the LE, no loss of bowel or bladder control OV 04/23/2023: Here for his f/u apt, he feels well today, no new labs OV 07/30/2023: Here for his routine apt, he is doing well today, he did do the labs, states that he is now eating more fruits and vegetables and has even started an exercise program and feels very well OV : Here for his f/u apt, he is doing well today, he is very eager to get his prescription for the diclofenac, he still LBP, no N/T or weakness or loss of bowel or bladder control, he has no new labs OV 04/07/2024: Here for his routine apt, he feels well today, still has some LBP, he did do the labs but has not yet seen pain management Marika Fraser MD [address] [place] [address], [facility] [address], [place], [address], [place] [facility] 04/07/2024 19:01:37
--- OUTSIDE RECORDS SUMMARY | 2024-06-15 17:09 | XMS_ITS | Clinical Summary ---
Author Organization [facility] Address [address] [place] [address] Care Team Providers Care Coat Maker Name Role Phone Unavailable Primary Care Provider Unavailabl e Social History Tobacco Use Types Packs/Day Years Used Date Smoking Tobacco: Never Assessed Sex and Gender Information Value Date Recorded Sex Assigned at Not on file Legal Sex Male 8:07 AM CDT Gender Identity Not on file Sexual Orientation Not on file Last Filed Vital Signs Vital Sign Reading Time Taken Comments Blood Pressure 166/96 01/12/2017 9:32 AM CDT Pulse 64 01/12/2017 9:32 AM CDT Temperature - - Respiratory Rate - - Oxygen Saturation - - Inhaled Oxygen Concentration - - Weight 84.5 kg (186 lb 6 oz) 01/12/2017 9:32 AM CDT Height 177.8 cm (5' 10 ) 01/12/2017 9:32 AM CDT Body Mass Index 26.74 01/12/2017 9:32 AM CDT Plan of Treatment Health Maintenance Due Date Last Done Comments Colorectal Cancer Screening Colonoscopy (10 Years) 1961 Annual Physical 01/12/1964 Hepatitis C 1979 DTaP, Tdap and Td Vaccines ( 1 - Tdap) 01/12/1980 Zoster Vaccines (1 of 2) 2011 COVID-19 Vaccine ( - 2023-2 5 season) 2023 RSV Immunization or 60+ Years (1 - 1-dose 75+ series) 01/12/2036 Meningococcal B Vaccine Aged Out No l onger eligible based on patient's age to complete this topic Meningococcal Vaccine Aged Out No sundar carie eligible based on patient's age to complete this topic Pneumococcal Vaccine: Pediat rics (0 to 5 Years) and At-Risk Patients (6 to 64 Years) Aged Out No longer eligible b ased on patient's age to complete this topic RSV Immunizations Under 20 Months Aged Out No longer eligible based on patient's age to complete this topic
--- NOTE | 2024-06-15 17:15 | ED_ITS ---
HPI - Extremity Injury (Upper) General Chief Complaint: Extremity Injury, Upper Stated Complaint: requesting an xray Time Seen by Provider: 06/15/24 17:10 Source: patient Mode of arrival: ambulatory Limitations: no limitations History of Present Illness HPI narrative: This is a 64-year-old male who presents to the ED for chief complaint of left shoulder pain after injury that occurred last week. Patient reports history of rotator cuff injury and surgery to this shoulder in the past. He feels that he may have tore his rotator cuff again. 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 States that he landed directly onto the left shoulder and left elbow. Difficulty with range of motion of the left shoulder. Denies numbness, weakness or any further injury. Related Data Allergies Allergy/AdvReac Type Severity Reaction Status Date / Time No Known Allergies Allergy Unverified 08/22/15 16:43 Review of Systems Review of Systems: All systems as dictated in HPI Exam Narrative: GENERAL: Well-appearing, well-nourished, and in no acute distress. MSK: Positive empty can test on the left. Difficulty with active range of motion of the left shoulder. Mild tenderness throughout the shoulder joint. No tenderness to the elbow or left wrist. SKIN: Warm, dry, no rash. NEURO: Alert and oriented x4. No focal deficits. PSYCH: Normal mood and affect. Course Vital Signs Vital signs: Vital Signs Temperature 97.5 F L 06/15/24 17:07 Pulse Rate 68 06/15/24 17:07 Respiratory Rate 16 06/15/24 17:07 Blood Pressure 156/91 H 06/15/24 17:07 Pulse Oximetry 96 06/15/24 17:07 Oxygen Delivery Room Air 06/15/24 17:07 Temperature 97.5 F L 06/15/24 17:07 Pulse Rate 68 06/15/24 17:07 Respiratory Rate 16 06/15/24 17:07 Blood Pressure 156/91 H 06/15/24 17:07 Pulse Oximetry 96 06/15/24 17:07 Oxygen Delivery Room Air 06/15/24 17:07 MDM - Extremity Injury (Upper) MDM Narrative Medical decision making narrative: This is a 64-year-old male who presents to the ED for chief complaint of left shoulder injury that occurred last week. Vitals are normal. Exam is remarkable for positive empty can test of the left shoulder. Left shoulder x-ray show likely acute shoulder separation. Suspect rotator cuff injury as well. He was placed in sling and will be given orthopedic referral. Patient will be discharged in stable condition. Supportive measures discussed and return precautions given. Patient is understanding and agreeable with plan for discharge with PCP follow-up. Discharge Plan Discharge Clinical Impression: Injury of left rotator cuff Patient Disposition: Home, Self-Care Condition: Stable Instructions: Antibiotic Form Additional Instructions: Exam and imaging today are probably showing a rotator cuff strain. Please follow-up closely with orthopedics on this injury. Use sling as needed. Remain light duty at work with no lifting. If you have any new or worsening symptoms please return to the ER for further evaluation. Patient Language: Salvadorean Prescriptions: New ketorolac 10 mg tablet 10 mg PO Q8H PRN (Reason: pain) Qty: 15 0RF Rx Instructions: maximum total duration of 5 days from all oral, intranasal, or parenteral formulations Follow-up/Referrals: Evelio,MD Marika [Primary Care Provider] - Mo Mondragon MD [Physician] - Stand Alone Forms: Work/School Release IP Time of Disposition: 17:46
--- OUTSIDE RECORDS SUMMARY | 2024-06-15 17:34 | XMS_ITS | Clinical Summary ---
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
[2024-06-15] MEDS: HYDROcodone/acetaminophen (*CRX) 5-325 MG TABLET 1 TAB PO (18:13)
== END 2024-06-15 18:37 | disposition home or self-care (01) ==
PROVIDERS: Emergency Provider Physician Assistant; PCP Internal Medicine
DX: S46.002A Unspecified injury of muscle(s) and tendon(s) of the rotator cuff of left shoulder, initial encounter (principal); W01.0XXA Fall on same level from slipping, tripping and stumbling without subsequent striking against object, initial encounter
CPT/HCPCS: 73030; 99283; A4565; A9270

== ENCOUNTER 2024-06-24 08:45 | Outpatient (CLI) | payer BC, SELFPAY ==
--- NOTE | ~2024-06-24 | MR_ITS ---
MRI of the left shoulder Technique: Axial proton-density fat-sat images, coronal proton density fat-sat and T2 fat-sat images, and sagittal T1-weighted and T2 fat-sat images were acquired. Clinical History: Pain Findings: Probable prior subacromial decompression. Coracoclavicular, coracoacromial, coracohumeral l igaments are grossly intact. Possible prior rotator cuff repair surgery. Infraspinatus tendon is intact aside from a focal low-gra de linear interstitial tear near the myotendinous junction. Suspected recurrent full-thickness tear a t the anterior, distal supraspinatus tendon with gap measuring up to approximately 1.5 x 1.0 cm in ex tent. Subscapularis tendon demonstrates distal thinning, which could reflect partial thickness tearin g. Probable prior biceps tenodesis. There is truncation of the superior labrum which could be postoperative in nature versus underlying t ear. Remainder the labrum appears intact. Inferior glenohumeral ligament is intact. No degenerative change glenohumeral joint. There are small glenohumeral joint effusion. No muscle atrophy or edema evident. Impression: Prior subacromial decompression and rotator cuff repair surgery. Suspected recurrent 1.5 x 1.0 cm ful l-thickness tear at the anterior, distal supraspinatus tendon insertion. This could be further confir med with MR arthrogram, if indicated. Prior biceps tenodesis. Thinning of the distal subscapularis tendon could reflect partial thickness tearing. Reviewed, dictated and finalized at [facility]. Impression: Prior subacromial decompression and rotator cuff repair surgery. Suspected recu rrent 1.5 x 1.0 cm full-thickness tear at the anterior, distal supraspinatus te ndon insertion. This could be further confirmed with MR arthrogram, if indicate d. Prior biceps tenodesis. Thinning of the distal subscapularis tendon could reflect partial thickness tea ring.
== END 2024-06-24 08:46 | disposition home or self-care (01) ==
LOC: GOSHIMG 08:45
PROVIDERS: PCP Orthopaedic Surgery; Visit Provider Orthopaedic Surgery
DX: M25.512 Pain in left shoulder (principal)
CPT/HCPCS: 73221